=== PATIENT | female | born 1960 | race Caucasian/White ===

== ENCOUNTER → 2018-04-30 | Day surgery (SDC) | payer OTHER ==
[~2018-04-30] VITALS: Ht 160 cm; Wt 83.0 kg
--- NOTE | 2018-04-30 12:30 | Operative Report ---
Operative/Inv Procedure Report Surgery Date: 04/30/18 Name of Procedure: Right knee arthroscopy, partial lateral meniscectomy Pre-Operative Diagnosis: Right knee lateral meniscus tear Post-Operative Diagnosis: Right knee lateral meniscus tear Estimated Blood Loss: scant Surgeon/Wood Inspector: Go Lawson MD Anesthesia: laryngeal mask airway Complications: None Condition: Stable to PACU Operative Indication: This is a 57-year-old female long-standing right knee pain that has failed conservative care. MRI showed a lateral meniscus tear.Risks and benefits of the procedure were discussed with the patient at length. Risks include but are not limited to nerve damage, muscle damage, infection, blood loss, blood clots, pulmonary embolus, and even . The patient agreed to the above risks and elected to proceed with surgery. Operative/Procedure Note Note: The patient was placed supine on the operating room table. A tourniquet was applied. The lower extremity was prepped and draped in normal sterile fashion. A timeout was performed before the incision. The site marking was visualized before incision. After the leg was prepped and draped, an Esmarch was used to exsanguinate the extremity. The tourniquet was inflated. A standard inferolateral portal was established with an 11 blade. The camera was inserted. A medial portal was established with a spinal needle and an 11 blade. The diagnostic arthroscopy was then performed which showed the above findings. A shaver was used to debride the anterior horn of the lateral meniscus. A straight biter as well as a shaver was then used to debride the body. A wand was used to further stabilize the anterior horn and body of the lateral meniscus. The knee was copiously irrigated. The portal sites were closed with 3-0 nylon suture in a simple interrupted fashion. The knee was injected with 10 mL of 0.25% Marcaine with epinephrine. A dry sterile dressing was applied and the patient was transferred to PACU in stable condition. Findings: Medial meniscus intact. Medial compartment articular cartilage intact. ACL intact. PCL intact. Lateral compartment articular cartilage with grade 2 chondral changes over the lateral femoral condyle. Lateral tibial plateau articular cartilage intact. Lateral meniscus with a intrasubstance tear of the anterior horn as well as a radial tear at the the body. Patellofemoral joint articular cartilage intact.
== END ==
LOC: STS 01:57
DX: M23.241 Derangement of anterior horn of lateral meniscus due to old tear or injury, right knee (principal)
CPT/HCPCS: J0131; J0690; J2250